=== PATIENT | male | born 2000 | race Caucasian/White ===

== ENCOUNTER 2022-10-26 14:59 | Emergency (ER) | payer OTHER ==
[~2022-10-26] VITALS: Ht 188 cm; Wt 79.4 kg
[~2022-10-26 14:59] MED LIST: ANXIETY MED; CEPH500 PO; RISPERDAL PO
== END 2022-10-26 16:38 | disposition home or self-care (01) ==
LOC: ER 14:59
DX: M23.8X1 Other internal derangements of right knee (principal)
CPT/HCPCS: 73562-RT